=== PATIENT | male | born 1940 | race Caucasian/White ===

== ENCOUNTER → 2016-11-02 | Outpatient (CLI) | payer MEDICARE ==
[~2016-11-02] MED LIST: AZIT500T4 PO; BENZ100C4 PO; BIMA2.5D OP; BRIN10DR OP; CEFD300C2 PO; FLUT1DIS3 INH; OSEL75CA PO; PRED20TA PO; SIMV20TA3 PO; TIMO1DRO2 OP
== END | disposition home or self-care (01) ==
LOC: PETCFH 08:36
PROVIDERS: ATTEND Internal Medicine
DX: C61 Malignant neoplasm of prostate (principal); D16.8 Benign neoplasm of pelvic bones, sacrum and coccyx
CPT/HCPCS: 78306; A9503

== ENCOUNTER → 2016-11-08 | Outpatient (CLI) | payer MEDICARE ==
[~2016-11-08] MED LIST changes: +GADOBUTROL 10 MMOL/10 ML VIAL ONE
== END | disposition home or self-care (01) ==
LOC: CFH 13:35
PROVIDERS: ATTEND Internal Medicine
DX: N42.89 Other specified disorders of prostate (principal); R97.20 Elevated prostate specific antigen [PSA]
CPT/HCPCS: 72197; A9585

== ENCOUNTER 2017-03-15 07:25 | Day surgery (SDC) | payer MEDICARE ==
[~2017-03-15] VITALS: Ht 184.2 cm; Wt 76.7 kg
[~2017-03-15 07:25] MED LIST changes: +ALBU18HF INH; -AZIT500T4 PO; +AZIT500T77 PO; +BIMA2.5D EACHEYE; +BUDE10.22 INH; +CALC600T4 PO; -CEFD300C2 PO; +CEFD300C37 PO; +CHOL5000 PO; +DOCU100C8 PO; +FAMO-79 PO; -GADOBUTROL 10 MMOL/10 ML VIAL ONE; +LEUP3.75 IJ; +LUTE1CAP PO
[2017-03-15 07:44] VITALS: BP 187/100
[2017-03-15] MEDS ORDERED: MIDAZOLAM 1 MG/ML, 5ML ONE (09:09)
[2017-03-15] MEDS ORDERED: FENTANYL PF 100 MCG/2ML ONE (09:09)
== END 2017-03-15 10:35 ==
LOC: OUT 07:25
PROVIDERS: ATTEND Internal Medicine Gastroenterology
DX: Z12.11 Encounter for screening for malignant neoplasm of colon (principal); D12.3 Benign neoplasm of transverse colon; D12.4 Benign neoplasm of descending colon; C61 Malignant neoplasm of prostate; K57.30 Diverticulosis of large intestine without perforation or abscess without bleeding; K62.89 Other specified diseases of anus and rectum; K21.9 Gastro-esophageal reflux disease without esophagitis; J45.909 Unspecified asthma, uncomplicated
CPT/HCPCS: 45385; 88305; 93005; 99152; 99153; J2250; J3010

== ENCOUNTER → 2018-09-10 | Outpatient (CLI) | payer MEDICARE ==
[~2018-09-10] MED LIST changes: +AZIT500T5 PO; -AZIT500T77 PO; +BENZ-17 PO; -BENZ100C4 PO; +DOCU100C33 PO; -DOCU100C8 PO
== END | disposition home or self-care (01) ==
LOC: LAB 15:39
PROVIDERS: ATTEND Nurse Practitioner
DX: R05 Cough (principal)
CPT/HCPCS: 88112

== ENCOUNTER → 2018-09-22 | Outpatient (CLI) | payer MEDICARE | END | disposition home or self-care (01) | LOC: CFH 08:06 | PROVIDERS: ATTEND Nurse Practitioner | DX: J98.11 Atelectasis (principal) | CPT/HCPCS: 71250 ==